=== PATIENT | female | born 1955 | race Caucasian/White ===

== ENCOUNTER 2018-12-17 10:14 | Outpatient (CLI) | payer MEDICARE, SELFPAY ==
[2018-12-17 11:10] LABS: Abs Immature Grans 0.01 k/cumm (0.0-0.09); Absolute Basophil Count 0.03 k/cumm (0.0-0.2); Absolute Eosinophil Count 0.08 k/cumm (0.0-0.7); Absolute Lymphocyte Count 1.15 k/cumm (1.2-3.4); Absolute Monocyte Count 0.55 k/cumm (0.11-0.7); Absolute Neutrophil Count 3.84 k/cumm (1.2-6.7); Basophils % 0.5; Eosinophils % 1.4; HCT 45.5 % (36.0-46.0); HGB 14.7 g/dL (12.0-15.5); Immature Grans % 0.2; Lymphocytes % 20.3; Mean Corp. HGB Concentration 32.3 g/dL (32.0-36.0); Mean Corpuscular Hemoglobin 30.6 pg (27.0-33.0); Mean Corpuscular Volume 94.8 fL (80-95); Mean Platelet Volume 11.2 fL (8.0-11.0); Monocytes % 9.7; Neutrophils % 67.9; Platelet Count 276 x1000/uL (130-400); RBC Distribution Width 13.2 % (11.7-14.6); White Blood Cell Count 5.66 k/cumm (4.4-10.8)
[2018-12-17 12:13] LABS: Albumin 4.1 g/dL (3.4-5.0); Chloride 102 mmol/L (98-107); Glucose 75 mg/dL (70-100); Total Protein 7.5 g/dL (6.4-8.2)
[2018-12-17 12:20] LABS: ALT 23 U/L (12-78); AST 26 U/L (15-37); Alkaline Phosphatase 84 U/L (46-116); Anion Gap 10.2 mmol/L (3-11); BUN 15 mg/dL (7-18); Bilirubin, Total 0.5 mg/dL (0.2-1.0); CO2 28.8 mmol/L (21.0-32.0); CREATININE 0.66 mg/dL (0.55-1.02); Calcium 9.1 mg/dL (8.5-10.1); Sodium 141 mmol/L (136-145)
== END 2018-12-17 10:34 ==
PROVIDERS: PCP Family Medicine; Visit Provider Family Medicine
DX: E06.3 Autoimmune thyroiditis (principal); R53.83 Other fatigue
CPT/HCPCS: 36415; 80053; 84439; 84443; 85025

== ENCOUNTER 2019-05-02 04:15 | Outpatient (CLI) | payer MEDICARE, SELFPAY ==
[2019-05-02 16:10] LABS: FREE T4 0.86 ng/dL (0.76-1.46); TSH 4.05 uIU/mL (0.36-3.74)
[2019-05-04 18:21] LABS: T3,Free 2.9 pg/ml (2.8-5.3)
[2019-05-05 10:14] LABS: Thyroglobulin Antibody 15 U/mL (<61); Thyroperoxidase Antibody 63 U/mL (<61)
== END 2019-05-02 04:35 ==
PROVIDERS: PCP Family Medicine; Visit Provider Family Medicine
DX: E03.9 Hypothyroidism, unspecified (principal); E06.3 Autoimmune thyroiditis; R53.83 Other fatigue
CPT/HCPCS: 36415; 86376; 84439; 84443; 84481

== ENCOUNTER 2019-08-26 13:34 | Outpatient (REF) | payer MEDICARE, SELFPAY ==
--- NOTE | 2019-08-26 11:40 | PAPFT_PTH ---
PATIENT: Lily Villasenor LOC: [facility] U#:[id number] AGE/SX: 64/F ROOM: RE08/26/[address]: Savanah Appiah : 1955 BED: DIS: 08/26/2019 SPEC #: [id number] RECD: 08/26/19 18:03 STATUS: MARLENE REXavi #: [id number] DEBRA: 08/26/19 11:[address]: Savanah Appiah DEPT: [facility] Cytology RECD BY: Lili Lamas ENTERED: 08/26/19 18:04 SP TYPE: PAPFT DEON DR: Lawrence Moon MD Tissues: 1 - CX/ENDOCX FOR PAP SMEARS Procedures: PAP THIN PREP/[facility] Screening HPV DNA PROBE Comments: [id number]
== END 2019-08-26 13:54 ==
LOC: LBN 13:34
PROVIDERS: PCP Family Medicine; Visit Provider Obstetrics & Gynecology Gynecology
DX: Z12.4 Encounter for screening for malignant neoplasm of cervix (principal); Z11.51 Encounter for screening for human papillomavirus (HPV)
CPT/HCPCS: 88142; 87624

== ENCOUNTER 2020-03-25 02:56 | Outpatient (CLI) | payer MEDICARE, SELFPAY ==
[2020-03-25 15:45] LABS: TSH (W/Ref FT4) 4.48 uIU/mL (0.36-3.74)
[2020-03-25 16:08] LABS: FREE T4 0.87 ng/dL (0.76-1.46)
[2020-03-26 11:36] LABS: Thyroglobulin Antibody 21 U/mL (<=60); Thyroperoxidase Antibody 84 U/mL (<=60)
== END 2020-03-25 03:16 ==
PROVIDERS: PCP Family Medicine; Visit Provider Family Medicine
DX: E06.3 Autoimmune thyroiditis (principal)
CPT/HCPCS: 36415; 86376; 84439; 84443

== ENCOUNTER 2021-02-18 01:23 | Outpatient (CLI) | payer MEDICARE, SELFPAY ==
[2021-02-18 13:36] LABS: TSH (W/Ref FT4) 4.01 uIU/mL (0.36-3.74)
[2021-02-18 13:57] LABS: FREE T4 0.74 ng/dL (0.76-1.46)
[2021-02-21 10:15] LABS: Thyroperoxidase Antibody 73 U/mL (<=60)
[2021-02-21 10:36] LABS: Thyroglobulin Antibody <15 U/mL (<=60)
== END 2021-02-18 01:24 | disposition home or self-care (01) ==
LOC: LOS 01:23
PROVIDERS: PCP Family Medicine; Visit Provider Family Medicine
DX: E03.9 Hypothyroidism, unspecified (principal)
CPT/HCPCS: 36415; 84439; 84443; 86376; 86800

== ENCOUNTER 2021-07-29 00:34 | Outpatient (CLI) | payer MEDICARE, SELFPAY ==
--- NOTE | 2021-07-29 07:15 | DI.DEXA_ITS ---
Exam(s) XR DEXA BONE DENSITY W/WO RAZ EXAM: XR DEXA BONE DENSITY W/WO RAZ CLINICAL HISTORY: osteoporosis,M81.0 TECHNIQUE: COMPARISON: No exams were available for comparison FINDINGS: DEXA scan was performed according to the usual protocol. Please see the accompanying data sheets. Findings for left hip are T-score -2.4 with left femoral neck T-score -2.4. Findings for lumbar spine scanning are T-score -2.7. Findings for left forearm scanning are T-score -3.2. IMPRESSION: The findings are consistent with osteoporosis according to the WHO criteria. The lateral vertebral s canogram shows no evidence of a vertebral compression fracture. RADIATION DOSE DELIVERED: Total DLP
== END 2021-07-29 00:54 ==
PROVIDERS: PCP Family Medicine; Visit Provider Family Medicine
DX: M81.0 Age-related osteoporosis without current pathological fracture (principal)
CPT/HCPCS: 77080

== ENCOUNTER 2021-08-18 01:59 | Outpatient (CLI) | payer MEDICARE, SELFPAY ==
[2021-08-18 13:17] LABS: TSH (W/Ref FT4) 5.92 uIU/mL (0.36-3.74)
[2021-08-18 13:18] LABS: Vitamin D 25 Total 42.9 ng/mL (30-100)
[2021-08-18 13:35] LABS: FREE T4 0.75 ng/dL (0.76-1.46)
== END 2021-08-18 02:00 | disposition home or self-care (01) ==
LOC: LOS 02:00
PROVIDERS: PCP Family Medicine; Visit Provider Family Medicine
DX: E03.9 Hypothyroidism, unspecified (principal); M81.0 Age-related osteoporosis without current pathological fracture
CPT/HCPCS: 36415; 82306; 84439; 84443

== ENCOUNTER 2022-03-14 02:37 | Outpatient (CLI) | payer MEDICARE, SELFPAY ==
[2022-03-14 13:17] LABS: TSH (W/Ref FT4) 4.52 uIU/mL (0.36-3.74)
[2022-03-14 13:38] LABS: FREE T4 0.83 ng/dL (0.76-1.46)
== END 2022-03-14 02:38 | disposition home or self-care (01) ==
LOC: LOS 02:37
PROVIDERS: PCP Family Medicine; Visit Provider Family Medicine
DX: E03.9 Hypothyroidism, unspecified (principal)
CPT/HCPCS: 36415; 84439; 84443

== ENCOUNTER 2022-06-22 14:16 | Outpatient (REF) | payer MEDICARE, SELFPAY ==
[2022-06-22 21:16] LABS: TSH 3.34 uIU/mL (0.36-3.74)
== END 2022-06-22 14:17 | disposition home or self-care (01) ==
LOC: LBN 14:16
PROVIDERS: PCP Internal Medicine; Visit Provider Nurse Practitioner Family
DX: E06.3 Autoimmune thyroiditis (principal)
CPT/HCPCS: 84443

== ENCOUNTER 2022-09-20 02:15 | Outpatient (CLI) | payer MEDICARE, SELFPAY ==
[2022-09-21 20:39] LABS: Thyroglobulin Antibody 17 U/mL (<=60); Thyroperoxidase Antibody 62 U/mL (<=60)
== END 2022-09-20 02:16 | disposition home or self-care (01) ==
LOC: LBO 02:15
PROVIDERS: PCP Family Medicine; Visit Provider Family Medicine
DX: E06.3 Autoimmune thyroiditis (principal); E03.9 Hypothyroidism, unspecified
CPT/HCPCS: 36415; 86376

== ENCOUNTER 2023-12-10 18:13 | Outpatient (CLI) | payer MEDICARE, SELFPAY ==
[2023-12-10 17:36] LABS: FREE T4 0.96 ng/dL (0.76-1.46)
[2023-12-11 09:25] LABS: Thyroglobulin Antibody <15 U/mL (<=60)
== END 2023-12-10 18:14 | disposition home or self-care (01) ==
LOC: LBO 18:20
PROVIDERS: PCP Family Medicine; Visit Provider Family Medicine
DX: E06.3 Autoimmune thyroiditis (principal); E03.9 Hypothyroidism, unspecified
CPT/HCPCS: 36415; 84439; 84443; 86800

== ENCOUNTER 2024-09-04 16:00 | Outpatient (CLI) | payer MEDICARE, SELFPAY ==
[2024-09-05 18:34] LABS: Thyroglobulin Antibody <1.8 IU/mL (<1.8); Thyroglobulin Tumor Marker 26 ng/mL
== END 2024-09-04 16:01 | disposition home or self-care (01) ==
LOC: LBO 16:01
PROVIDERS: PCP Family Medicine; Visit Provider Family Medicine
DX: E03.9 Hypothyroidism, unspecified (principal); E06.3 Autoimmune thyroiditis
CPT/HCPCS: 36415; 84432; 84443; 86800